=== PATIENT | male | born 1980 | race African-American/Black ===

== ENCOUNTER → 2016-04-26 | Day surgery (SDC) | payer OTHER ==
[~2016-04-26] MED LIST: BUPIVACAINE HCL PF 0.25% 30 ML VIAL ONE; KETOROLAC TROMETHAMINE 30 MG/ML (IVP) VIAL IV PUSH ONE; LACTATED RINGER'S 1000 ML INJ 1,000 ML ONE; MIDAZOLAM HCL 2 MG/2 ML VIAL ONE; ONDANSETRON HCL 4 MG/2 ML VIAL IV PUSH ONE; PROPOFOL 200 MG/20 ML AMP IV ONE; ceFAZolin 2 GM PREMIX 50 ML ONE; oxyCODONE/ACETAMINOPHEN 5 MG/325 MG TAB ONE
--- NOTE | 2016-04-28 16:38 | TN ---
cc: JOANIE TRINIDAD DPM DATE OF SURGERY: 04/26/2016. INDICATIONS FOR THE PROCEDURE: The patient is a 35-year-old male who presented to the clinic complaining of continued pain with calluses to his plantar lateral aspects of his bilateral feet as well as the plantar and medial aspect of bilateral great toes. We discussed offloading these areas in order to decrease callus formation as well as reduction of underlying bunion deformity and tailor's bunion deformity. He expressed the desire to do what he needed to do in order to get rid of the calluses internally by removing bone instead of continuing to come to have the calluses pared down on a regular basis for pain relief and expressed an interest in having surgical correction of this. I expressed to him the risks, benefits, and surgical complications to the surgery and he consented to move forward with removal of painful exostosis right and left hallux as well as tailor's bunionectomy right and left foot. I discussed with him that he will be weightbearing as tolerated in bilateral surgical shoes and he cannot get the feet wet and those would be his major restrictions. All the questions were answered to his satisfaction and he consented to move forward with surgery. DESCRIPTION OF THE PROCEDURE IN DETAIL: He was seen in preop holding by myself, nursing staff and anesthesia where the correct patient, side and sites were all confirmed to be correct and bilateral feet, great toes and lateral aspects of the feet bilaterally. He was seen by preop nursing staff and anesthesia prior to being taken back to the surgical suite. He was placed in supine position. Attention was directed bilateral lower extremities. They were prepped and draped in normal sterile fashion. Timeouts were performed as per facility protocol. Following this, attention was first directed to the right foot where an incision was made on the medial aspect of the great toe at the area of the interphalangeal joint. The bone was exposed at the area just plantar to the chronic callus formation area just plantar to the interphalangeal joint. There was noted to be a bony condyle at the plantar aspect of the head of the proximal phalanx that was removed using a saw blade and a rongeur. It was noted upon entering this area that there was noted to be an accessory ossicle at the plantar aspect of the IP joint that was also removed that could have been contributing to the same area since it was just superficial to the chronic callus area as well. This area was saucerized followed by irrigation and closure using 4-0 Vicryl deep suture followed by 4-0 nylon to the skin. Attention was then directed to the left foot where the same procedure was performed; however, there was no noted accessory ossicle in the area at the plantar aspect of the interphalangeal joint. There was noted to be hypertrophic bone to the plantar and medial aspect of the head of the proximal phalanx however. Following this, attention was directed to the lateral aspect of the right foot where a linear incision was made across the dorsal lateral aspect of the fifth metatarsal head and exposure was achieved taking care to avoid neurovascular structures. Following this, a linear capsulotomy was utilized in order to access the lateral aspect of the fifth metatarsal head area. The lateral aspect of the bony prominence and slightly dorsal aspect of the bony prominence was removed which was consistent with the area superficial to the patient's chronic hyperkeratotic lesion. The area was saucerized followed by a copious irrigation and closure of the deep structures using 4-0 Vicryl suture followed by closure of the skin with 4-0 nylon. Following this, the same procedure was performed to the left lateral foot and to the fifth metatarsal head area in its entirety. Following this, a dressing consisting of Xeroform to all four sites followed by 4x4s, cast padding and FREEDOM bandage to bilateral feet was applied. He tolerated procedures and the anesthesia well. He was taken back to the recovery with the vascular status intact to bilateral lower extremities without any complications. He will be weightbearing as tolerated bilaterally in surgical shoes and will follow up in clinic next week. He will keep the areas clean, dry and the bandages intact. SURGEON: Joanie Trinidad DPM. SLD TEACHER: Staff. PREOPERATIVE DIAGNOSIS: 1. Painful exostosis right and left hallux. 2. Painful tailor's bunion right and left foot. POSTOPERATIVE DIAGNOSIS: 1. Painful exostosis right and left hallux. 2. Painful tailor's bunion right and left foot. OPERATIVE PROCEDURE PERFORMED: 1. Ostectomy right and left hallux with removal of accessory ossicle in the right interphalangeal joint. 2. Tailor's bunionectomy right and left foot. PATHOLOGY: None. PROPHYLAXIS: 2 grams Ancef IV. ANESTHESIA: General endotracheal anesthesia plus 20 mL of 0.25% Marcaine plain. ESTIMATED BLOOD LOSS: Minimal. HEMOSTASIS: No tourniquet utilized. SPECIMENS REMOVED: None. COMPLICATIONS: None. CONDITION: Stable to PACU. DISPOSITION: Weightbearing as tolerated in bilateral surgical shoes and follow up in clinic in one week. Joanie ORR/ARIAS /4:03 PM /4:18 PM
== END | disposition home or self-care (01) ==
LOC: ESDC 06:22
PROVIDERS: ATTEND Podiatrist Foot & Ankle Surgery
DX: M25.774 Osteophyte, right foot (principal); M25.775 Osteophyte, left foot; M21.622 Bunionette of left foot; M21.621 Bunionette of right foot; M20.11 Hallux valgus (acquired), right foot
CPT/HCPCS: 01480; 28110; 28288; 73620; 76000; J0690; J1885; J2250; J2405; J3010; J7120